=== PATIENT | male | born 1975 | race Caucasian/White ===

== ENCOUNTER 2025-02-06 05:51 | Inpatient (IN) | payer SELFPAY ==
[~2025-02-06] VITALS: Ht 185.4 cm; Wt 111.6 kg
[2025-02-06 05:54] VITALS: O2SAT 100
[2025-02-06 08:00] VITALS: BP 113/69; PULSE 78; RESP 18; TEMP 36.4; O2SAT 95
[2025-02-06 08:34] LABS: BASOPHILS % 0.7 % (0.0-2.0); EOSINOPHILS % 1.3 % (0.0-5.0); HEMATOCRIT. 48.0 % (42.0-52.0); HEMOGLOBIN. 16.0 g/dL (14.0-18.0); LYMPHOCYTES % 16.1 % (20.0-50.0); MEAN PLATELET VOLUME 7.5 fl (7.4-10.4); MONOCYTES % 12.8 % (2.0-8.0); NEUTROPHILS % 69.1 % (40.0-76.0); PLATELET 289 x1000/uL (130-400); RED BLOOD CELL COUNT 5.18 mill/uL (4.7-6.1); RED CELL DISTRIBUTION WIDTH 13.7 % (11.6-14.6)
[2025-02-06 09:05] LABS: CREATININE 0.9 mg/dL (0.6-1.3); TROPONIN I HIGH SENSITIVITY 5 ng/L (3.0-53); UREA NITROGEN BLOOD 17 mg/dL (9-23)
[2025-02-06 09:06] LABS: ETHANOL BLOOD < 10 mg/dL (<10)
[2025-02-06 09:07] LABS: ASPARTATE AMINOTRANSFERASE 20 IU/L (<34); BILIRUBIN DIRECT 0.7 mg/dL (<=3.0); BILIRUBIN TOTAL 2.3 mg/dL (0.1-1.0); PROTEIN TOTAL 7.0 g/dL (6.0-8.3)
[2025-02-06 12:00] VITALS: BP_SYST 113; BP_DIAS 69; BP_DIAS 78; PULSE 78; RESP 18; TEMP 36.4; TEMP 36.418; O2SAT 95
[2025-02-06] MEDS ORDERED: IPRATROPIUM/ALBUTEROL 0.5-3(2.5)MG/3ML NEB HHN PRN (14:15)
[2025-02-06] MEDS ORDERED: ONDANSETRON HCL 4MG/2ML INJ IV PRN (14:15)
[2025-02-06] MEDS ORDERED: DOCUSATE SODIUM 100MG CAPSULE PO PRN (14:15)
[2025-02-06] MEDS ORDERED: ACETAMINOPHEN 325MG TABLET PO PRN ×2 (14:15)
[2025-02-06 16:00] VITALS: BP 108/62; PULSE 82; RESP 19; TEMP 36.5; O2SAT 97
[2025-02-06] MEDS: SODIUM CHLORIDE 0.9% 1,000 ML IV SCH (19:30)
[2025-02-06] MEDS: FOLIC ACID 1 MG, THIAMINE HCL 100 MG, MVI, ADULT NO.1 10 ML in DEXTROSE 5% WATER 1,000 ML IV ONE (19:40)
[2025-02-06 20:00] VITALS: BP 104/61; PULSE 79; RESP 18; TEMP 37; O2SAT 95
[2025-02-07] VITALS: BP 111/62; PULSE 81; RESP 18; TEMP 36.5; O2SAT 98
[2025-02-07 04:00] VITALS: BP 97/65; PULSE 74; RESP 20; TEMP 36.8; O2SAT 93
[2025-02-07 07:52] LABS: *AMPHETAMINES SCREEN URINE PRESUMPTIVE POSITIVE (NEGATIVE)
[2025-02-07 07:53] LABS: *BARBITURATES SCREEN URINE NEGATIVE (NEGATIVE); *BENZODIAZEPINES SCREEN URINE NEGATIVE (NEGATIVE); *COCAINE SCREEN URINE PRESUMPTIVE POSITIVE (NEGATIVE); CANNABINOID URINE SCREEN PRESUMPTIVE POSITIVE (NEGATIVE); METHADONE URINE SCREEN NEGATIVE (NEGATIVE); OPIATES URINE SCREEN NEGATIVE (NEGATIVE); PHENCYCLIDINE URINE SCREEN NEGATIVE (NEGATIVE)
[2025-02-07 07:54] LABS: ECSTASY MDMA SCREEN URINE CONF.TEST INDICATED (NEGATIVE)
[2025-02-07 08:00] VITALS: BP 112/65; PULSE 79; RESP 20; TEMP 36.3; O2SAT 97
[2025-02-07] MEDS: FOLIC ACID 1MG TABLET PO SCH (09:38)
[2025-02-07] MEDS: MULTIVITAMINS,THER W-MINERALS TABLET PO SCH (09:38)
[2025-02-07] MEDS: THIAMINE HCL 100MG TABLET PO SCH (09:38)
== END 2025-02-07 10:21 | disposition left against medical advice (07) | DRG 204 ==
LOC: ER 05:51 → 5WST 07:46 → EDBEDREQTM 07:52 → EDBEDREQ 07:52 → ENRESERV 08:05
PROVIDERS: ADMIT Family Medicine Adult Medicine; ATTEND Family Medicine Adult Medicine
DX: R55 Syncope and collapse (principal); D72.821 Monocytosis (symptomatic); F10.129 Alcohol abuse with intoxication, unspecified; G47.30 Sleep apnea, unspecified; Y90.8 Blood alcohol level of 240 mg/100 ml or more; Z53.29 Procedure and treatment not carried out because of patient's decision for other reasons; E80.6 Other disorders of bilirubin metabolism; Z88.0 Allergy status to penicillin
CPT/HCPCS: 36415; 70486; 71045; 73080; 76700; 80048; 80076; 80305; 80320; 83036; 84484; 85025; 93005; 99285; J3411; J3490; J7030; J7070; G0480